=== PATIENT | male | born 1995 | race Hispanic/Latino ===

== ENCOUNTER → 2017-01-31 | Outpatient (CLI) | payer OTHER ==
--- NOTE | 2017-01-31 16:46 | REP ---
MRI LEFT ANKLE: TECHNIQUE: Multiple sequence were taken in the axial, coronal, sagittal planes. The Achilles, anterior tibial, posterior tibial, flexor hallucis longus, flexor digitorum longus and peroneal tendons are all intact. I do not see significant tenosynovitis. Anterior and posterior talofibular, calcaneal fibular and deltoid ligaments appear intact. Plantar fascia demonstrates no abnormal signal with no plantar fasciitis. Plantar tendon is intact. Scattered joint fluid is nonspecific and there does not appear to be a significant joint effusion. I see no definite ganglion cyst. No other soft-tissue abnormality is seen. Tibiotalar joint is unremarkable with no osteochondral defect of the talar dome. IMPRESSION: Essentially negative MRI left ankle. Signed by Arnav Rae MD 01/31/2017 08:43 P
== END ==
LOC: M RAD 13:14
PROVIDERS: ATTEND Podiatrist Foot & Ankle Surgery
DX: S93.402D Sprain of unspecified ligament of left ankle, subsequent encounter (principal)

== ENCOUNTER 2017-03-04 08:32 | Emergency (ER) | payer OTHER ==
[2017-03-04 11:16] LABS: BASO % 0.2 % (0.0-1.0); EOS % 0.9 % (0.0-3.0); HEMATOCRIT 45.8 % (42.0-52.0); HEMOGLOBIN 15.9 g/dl (14.0-18.0); LYMPH # 1.6 10^3/uL (1.5-6.5); MEAN CORPUSCULAR HGB CONC 34.7 g/dl (32.0-36.5); MEAN CORPUSCULAR VOLUME 89.3 fl (80.0-96.0); MONO # 0.3 10^3/uL (0.0-0.8); MONO % 7.4 % (0.0-5.0); NEUTROPHILS # 2.6 10^3/uL (1.8-7.7); NEUTROPHILS % 57.5 % (36.0-66.0); PLATELET COUNT, AUTOMATED 199 10^3/uL (150-450); RED BLOOD COUNT 5.13 10^6/uL (4.30-6.10); WHITE BLOOD COUNT 4.6 10^3/uL (4.0-10.0)
[2017-03-04 11:49] LABS: ANION GAP 5 MEQ/L (8-16); BLOOD UREA NITROGEN 10 MG/DL (7-18); CALCIUM LEVEL 8.8 MG/DL (8.5-10.1); CARBON DIOXIDE LEVEL 29 MEQ/L (21-32); CHLORIDE LEVEL 106 MEQ/L (98-107); CREATININE FOR GFR 1.01 MG/DL (0.70-1.30); GLOMERULAR FILTRATION RATE > 60.0 (>60); GLUCOSE, FASTING 89 MG/DL (70-100); POTASSIUM SERUM 4.3 MEQ/L (3.5-5.1); SODIUM LEVEL 140 MEQ/L (136-145); THYROID STIMULATING HORMONE 0.807 uIU/ML (0.358-3.740)
== END 2017-03-04 12:38 | disposition home or self-care (01) ==
LOC: M ED 08:32
DX: K59.00 Constipation, unspecified (principal)
CPT/HCPCS: 84443